=== PATIENT | female | born 1995 | race Two or more races ===

== ENCOUNTER 2018-11-23 00:02 | Inpatient (IN) | payer SELFPAY ==
[~2018-11-23] VITALS: Ht 165.1 cm; Wt 80.3 kg
[2018-11-23] MEDS ORDERED: ACETAMINOPHEN 500 MG TABLET PO PRN (00:15)
[2018-11-23 00:32] LABS: BILIRUBIN,URINE NEGATIVE (NEG); CLARITY,URINE CLEAR; COLOR,URINE YELLOW; NITRITE,URINE NEGATIVE (NEG); PROTEIN,URINE NEGATIVE (NEG-TRACE)
[2018-11-23 00:36] LABS: BACTERIA,URINE FEW /HPF (0-FEW); BARBITURATES NEG (NEG); BENZODIAZEPINES NEG (NEG); CANNABINOIDS NEG (NEG); COCAINE NEG (NEG); METHADONE NEG (NEG); OPIATES NEG (NEG); PHENCYCLIDINE NEG (NEG); RBC,URINE 0 /HPF (0-2); SQUAMOUS EPITHELIAL CELL,UR MANY /LPF
[2018-11-23 00:38] LABS: AMPHETAMINE/METHAMPHETAMINE NEG (NEG)
[2018-11-23 02:15] VITALS: BP 127/78
[2018-11-23] MEDS ORDERED: fentaNYL PF VIAL 100 MCG/2 ML VIAL IV PRN ×2 (02:15)
[2018-11-23] MEDS ORDERED: CITRIC ACID/SODIUM CITRATE 30 ML SOLUTION. PO PRN (02:15)
[2018-11-23] MEDS ORDERED: ONDANSETRON PF 4 MG/2 ML VIAL. IV PRN ×2 (02:15→15:45)
[2018-11-23] MEDS ORDERED: OXYTOCIN 30 UNIT/500 ML PREMIX 500 ML IV PRN ×4 (02:15→15:45)
[2018-11-23] MEDS ORDERED: IV RINGERS,LACTATED 1000ML 1,000 ML IV SCH (02:15)
[2018-11-23] MEDS ORDERED: TERBUTALINE 1 MG/ML VIAL. SQ PRN (02:15)
[2018-11-23] MEDS ORDERED: LIDOCAINE 1% PF 30 ML VIAL. INJ PRN (02:15)
[2018-11-23] MEDS ORDERED: 0.9 % SODIUM CHLORIDE 10 ML DISP.SYRIN. IV PRN ×3 (02:15→15:45)
[2018-11-23] MEDS ORDERED: IBUPROFEN 400 MG TABLET. PO PRN ×2 (02:15→08:45)
[2018-11-23 02:30] LABS: BASO # 0.1 x10^3/uL (0.0-0.2); BASO % 1 % (0-3); EOS # 0.1 x10^3/uL (0.0-0.7); EOS % 1 % (0-3); HEMATOCRIT 38.9 % (36.0-47.0); HEMOGLOBIN 13.2 g/dL (12.0-15.5); LYMPH # 2.4 x10^3/uL (1.0-4.8); LYMPH % 20 % (24-48); MEAN CORPUSCULAR HEMOGLOBIN 29 pg (25-35); MEAN CORPUSCULAR HGB CONC 34 g/dL (31-37); MEAN CORPUSCULAR VOLUME 86 fL (79-100); MONO # 0.9 x10^3/uL (0.0-1.1); MONO % 8 % (0-9); NEUT # 8.3 x10^3uL (1.8-7.7); NEUT % 70 % (31-73); PLATELET COUNT 257 x10^3/uL (140-400); RED BLOOD COUNT 4.51 x10^6/uL (3.50-5.40); WHITE BLOOD COUNT 11.9 x10^3/uL (4.0-11.0)
[2018-11-23] MEDS: IV RINGERS,LACTATED 1000ML 1,000 ML IV SCH ×3 (02:33→20:00)
[2018-11-23] MEDS: BUTORPHANOL 2 MG/ML VIAL. IV PRN ×3 (02:48→09:29)
--- NOTE | 2018-11-23 08:44 | PDOC1 ---
OB - History Hx of Present Care: Good Care Ultrasounds: Normal mid trimester US Obstetrical Complications: None Medical Complications: None Past Family/Social History * Past Medical, Surgical, Family and Obstetric Histories reviewed from chart. Blood Type: O+ Rubella: Immune RPR/VDRL: Negative GBS Status: Negative HBsAG: Negative OB - Chief Complaint & HPI Date of Admission: Date of Admission: Nov 23, 2018 at 00:02 Chief Complaint/History : 3 Para: 2 EDC: Nov 24, 2018 Reason for admission: active labor Admission Nurse Assessment Rev: Yes OB - Admission Exam Physical Exam Vitals: VS - Last 72 Hours, by Label Date Time Temp Pulse Resp B/P (MAP) Pulse Ox O2 Delivery O2 Flow Rate FiO2 11/23/18 05:53 22 Room Air 11/23/18 02:48 18 Room Air 11/23/18 02:15 97.7 102 20 127/78 (94) 97 Room Air 97.7 HEENT: Normal, Nasal Mucosa Normal, Oropharynx Normal, Moist Membranes, Fontanelles Normal Heart: Regular Rate Lungs: Clear, Equal Abdomen: Gravid Extremities: Normal Pulses, No tenderness or swelling Reflexes: Normal Cervical Dilatation: 3cm Effacement: 75% Station: -2 Membranes: Intact Heart Rate: Normal Accelerations: Accelerations Present Short Term Variability: Present Contractions on Admission: 6-10 Minutes Apart Intensity: Moderate Assessment/Plan Assessment/Plan TIUP Labor ACS FRANCES MOROCHO MD Nov 23, 2018 08:44
[2018-11-23] MEDS ORDERED: HYDROCORTISONE 1% TOPICAL OINTMENT 30GM TUBE. TP PRN (08:45)
[2018-11-23] MEDS ORDERED: MAGNESIUM HYDROXIDE 2,400 MG/30 ML ORAL.SUSP. PO PRN (08:45)
[2018-11-23] MEDS ORDERED: diphenhydrAMINE HCL 25 MG CAPSULE PO PRN (08:45)
[2018-11-23] MEDS ORDERED: SIMETHICONE 80 MG TAB.CHEW PO PRN ×2 (08:45→15:45)
[2018-11-23] MEDS ORDERED: ZOLPIDEM 5 MG TABLET. PO PRN ×2 (08:45→15:45)
[2018-11-23] MEDS ORDERED: BENZOCAINE 20% TOPICAL AEROSOL SPRAY 57GM CAN. TP PRN (08:45)
[2018-11-23] MEDS ORDERED: PHENYLEPH/MINERAL OIL/PETROLAT RECTAL OINTMENT 57GM TUBE. RC PRN (08:45)
[2018-11-23] MEDS ORDERED: ACETAMINOPHEN 325 MG TABLET. PO PRN (08:45)
[2018-11-23] MEDS ORDERED: MAG HYDROX/ALUMINUM HYD/SIMETH 30 ML ORAL.SUSP PO PRN ×2 (08:45→15:45)
[2018-11-23] MEDS ORDERED: ROPIVacaine 0.2% PF 10 ML VIAL. ONE (10:30)
[2018-11-23] MEDS ORDERED: ROPIVacaine 0.2% IN 0.9%NACL PF 40 MG/20 ML DISP.SYRIN. ONE (10:31)
[2018-11-23] MEDS ORDERED: L&D EPIDURAL SYRINGE 50 ML ONE (10:31)
[2018-11-23] MEDS ORDERED: L&D EPIDURAL 50 ML SYRINGE. ONE (10:31)
[2018-11-23] MEDS ORDERED: LIDOCAINE 2% PF 5 ML VIAL. ONE ×4 (14:38→14:59)
[2018-11-23] MEDS ORDERED: OXYTOCIN 10 UNIT/ML VIAL. ONE ×5 (14:43→15:35)
[2018-11-23] MEDS ORDERED: ceFAZolin SODIUM 1 GM VIAL ONE ×2 (14:46→14:47)
[2018-11-23] MEDS ORDERED: fentaNYL PF VIAL 100 MCG/2 ML VIAL ONE ×2 (15:00→15:35)
[2018-11-23] MEDS ORDERED: KETAMINE HCL IN NACL, ISO-OSM 50 MG/5 ML SYRINGE ONE ×2 (15:02→15:35)
[2018-11-23] MEDS ORDERED: miSOPROStol 200 MCG TABLET ONE ×8 (15:03→15:35)
[2018-11-23] MEDS ORDERED: PHENYLEPHRINE in 0.9% NACL PF 1 MG/10 ML SYRINGE. IV ONE ×2 (15:07→15:35)
[2018-11-23] MEDS ORDERED: MIDAZOLAM HCL/PF 2 MG/2 ML VIAL. ONE ×2 (15:34→15:35)
--- NOTE | 2018-11-23 15:39 | PDOC ---
BRIEF OPERATIVE NOTE Pre-Op Diagnosis TIUP Labor Post-Op Diagnosis Same FTP Procedure Performed Primary LTC/S Surgeon Fiona Anesthesia Type: Regional Blood Loss 2L Findings Female 9# Complications Hemorrhage FRANCES MOROCHO MD Nov 23, 2018 15:39
[2018-11-23] MEDS ORDERED: diphenhydrAMINE ORAL ELIXIR 12.5 MG/5 ML ML PO PRN (15:45)
[2018-11-23] MEDS ORDERED: oxyCODONE/APAP 5/325 1 TAB TABLET PO PRN (15:45)
[2018-11-23] MEDS ORDERED: MMR per PROTOCOL. MC PRN (15:45)
[2018-11-23] MEDS ORDERED: HYDROmorphone 12mg/30ml PCA 30 ML IV PRN (16:00)
[2018-11-23 16:25] LABS: HEMATOCRIT 31.5 % (36.0-47.0); HEMOGLOBIN 10.5 g/dL (12.0-15.5)
[2018-11-23] MEDS ORDERED: FERROUS SULFATE 325 MG TABLET. PO SCH (17:00)
[2018-11-23 18:45] VITALS: BP 109/72
[2018-11-23] MEDS ORDERED: IBUPROFEN 400 MG TABLET. PO SCH (22:00)
[2018-11-23] MEDS ORDERED: ceFAZolin SODIUM 1 GM in IV DEXTROSE 5% 50 ML IV SCH (22:00)
[2018-11-23 22:13] VITALS: BP 98/66
[2018-11-23] MEDS: ceFAZolin SODIUM IV Push 1 GM VIAL. IVP SCH (22:16)
[2018-11-24 02:00] VITALS: BP 89/52
[2018-11-24] MEDS: IV RINGERS,LACTATED 1000ML 1,000 ML IV SCH ×2 (04:48→12:25)
[2018-11-24 05:10] VITALS: BP 99/59
[2018-11-24] MEDS: IBUPROFEN 400 MG TABLET. PO SCH ×2 (06:15→16:23)
[2018-11-24] MEDS: ceFAZolin SODIUM IV Push 1 GM VIAL. IVP SCH ×2 (06:16→14:43)
[2018-11-24 07:40] VITALS: BP 99/56
[2018-11-24] MEDS: oxyCODONE/APAP 5/325 1 TAB TABLET PO PRN ×4 (08:06→22:31)
[2018-11-24 08:13] LABS: BASO % 0 % (0-3); EOS # 0.1 x10^3/uL (0.0-0.7); EOS % 0 % (0-3); HEMATOCRIT 22.8 % (36.0-47.0); HEMOGLOBIN 7.7 g/dL (12.0-15.5); LYMPH # 2.2 x10^3/uL (1.0-4.8); LYMPH % 17 % (24-48); MEAN CORPUSCULAR HEMOGLOBIN 29 pg (25-35); MEAN CORPUSCULAR HGB CONC 34 g/dL (31-37); MEAN CORPUSCULAR VOLUME 86 fL (79-100); MONO # 1.5 x10^3/uL (0.0-1.1); MONO % 11 % (0-9); NEUT # 9.5 x10^3uL (1.8-7.7); NEUT % 72 % (31-73); PLATELET COUNT 184 x10^3/uL (140-400); RED BLOOD COUNT 2.65 x10^6/uL (3.50-5.40); WHITE BLOOD COUNT 13.3 x10^3/uL (4.0-11.0)
--- NOTE | 2018-11-24 08:25 | PDOC ---
Provider Note Provider Note Stable Hgb 7.7 Dressing CDI FU in AM Vital Sign - Last 24 Hours 11/23/18 11/23/18 11/23/18 11/23/18 16:42 18:45 20:15 22:13 Temp 98.0 98.3 98.0 98.3 Pulse 114 112 Resp 18 18 20 18 B/P (MAP) 109/72 (84) 98/66 (77) Pulse Ox 97 97 96 O2 Delivery Room Air Room Air ETCO2=33 ETCO2=33 11/24/18 11/24/18 11/24/18 11/24/18 02:00 05:10 05:12 08:06 Temp 98.3 98.6 98.3 98.6 Pulse 115 117 Resp 24 18 20 20 B/P (MAP) 89/52 (64) 99/59 (72) Pulse Ox 95 96 98 O2 Delivery ETCO2=35 Room Air ETCO2=34 Room Air Intake and Output 11/23/18 11/23/18 11/24/18 15:00 23:00 07:00 Intake Total 2420 ml Output Total 450 ml Balance 1970 ml CBC - BMP 11/23/18 16:20 11/24/18 07:52 FRANCES MOROCHO MD Nov 24, 2018 08:25
[2018-11-24] MEDS: FERROUS SULFATE 325 MG TABLET. PO SCH ×2 (12:24→16:23)
[2018-11-24 12:25] VITALS: BP 86/46
[2018-11-24 16:20] VITALS: BP 94/60
[2018-11-24 21:30] VITALS: BP 90/54
[2018-11-24] MEDS: DOCUSATE SODIUM 100 MG CAPSULE. PO PRN (21:53)
[2018-11-24] MEDS: MAGNESIUM HYDROXIDE 2,400 MG/30 ML ORAL.SUSP. PO PRN (21:53)
[2018-11-25] MEDS: IBUPROFEN 400 MG TABLET. PO SCH (04:56)
[2018-11-25] MEDS: oxyCODONE/APAP 5/325 1 TAB TABLET PO PRN (04:57)
[2018-11-25 05:26] LABS: HEMATOCRIT 21.4 % (36.0-47.0); HEMOGLOBIN 7.3 g/dL (12.0-15.5); RED BLOOD COUNT 2.47 x10^6/uL (3.50-5.40); RED CELL DISTRIBUTION WIDTH 15.9 % (11.5-14.5); WHITE BLOOD COUNT 12.6 x10^3/uL (4.0-11.0)
[2018-11-25 05:31] VITALS: BP 105/57
[2018-11-25] MEDS: FERROUS SULFATE 325 MG TABLET. PO SCH (09:59)
[2018-11-25] MEDS: DOCUSATE SODIUM 100 MG CAPSULE. PO PRN (09:59)
[2018-11-25] MEDS: MAGNESIUM HYDROXIDE 2,400 MG/30 ML ORAL.SUSP. PO PRN (09:59)
[2018-11-25 11:20] VITALS: BP 100/59
[2018-11-25 15:15] VITALS: BP_SYST 104
--- NOTE | 2018-11-25 18:30 | PDOC ---
OB Progress Note Date of Service 11/25/18 Time of Evaluation 1830 Notes Pt. feeling well. No complaints. Lab Laboratory Tests Test 11/24/18 07:52 11/25/18 04:30 White Blood Count 13.3 x10^3/uL (4.0-11.0) 12.6 x10^3/uL (4.0-11.0) Red Blood Count 2.65 x10^6/uL (3.50-5.40) 2.47 x10^6/uL (3.50-5.40) Hemoglobin 7.7 g/dL (12.0-15.5) 7.3 g/dL (12.0-15.5) Hematocrit 22.8 % (36.0-47.0) 21.4 % (36.0-47.0) Mean Corpuscular Volume 86 fL (79-100) 87 fL (79-100) Mean Corpuscular Hemoglobin 29 pg (25-35) 29 pg (25-35) Mean Corpuscular Hemoglobin Concent 34 g/dL (31-37) 34 g/dL (31-37) Red Cell Distribution Width 16.0 % (11.5-14.5) 15.9 % (11.5-14.5) Platelet Count 184 x10^3/uL (140-400) 201 x10^3/uL (140-400) Neutrophils (%) (Auto) 72 % (31-73) Lymphocytes (%) (Auto) 17 % (24-48) Monocytes (%) (Auto) 11 % (0-9) Eosinophils (%) (Auto) 0 % (0-3) Basophils (%) (Auto) 0 % (0-3) Neutrophils # (Auto) 9.5 x10^3uL (1.8-7.7) Lymphocytes # (Auto) 2.2 x10^3/uL (1.0-4.8) Monocytes # (Auto) 1.5 x10^3/uL (0.0-1.1) Eosinophils # (Auto) 0.1 x10^3/uL (0.0-0.7) Basophils # (Auto) 0.0 x10^3/uL (0.0-0.2) Laboratory Tests Test 11/25/18 04:30 White Blood Count 12.6 x10^3/uL (4.0-11.0) Red Blood Count 2.47 x10^6/uL (3.50-5.40) Hemoglobin 7.3 g/dL (12.0-15.5) Hematocrit 21.4 % (36.0-47.0) Mean Corpuscular Volume 87 fL (79-100) Mean Corpuscular Hemoglobin 29 pg (25-35) Mean Corpuscular Hemoglobin Concent 34 g/dL (31-37) Red Cell Distribution Width 15.9 % (11.5-14.5) Platelet Count 201 x10^3/uL (140-400) Medications Current Medications Ringer's Solution 1,000 ml @ 125 mls/hr Q8H IV Last administered on 11/24/18at 12:25; Start 11/23/18 at 00:15 Acetaminophen (Tylenol) 1,000 mg PRN Q6HRS PRN PO MILD PAIN 1-3; Start 11/23/18 at 00:15 Sodium Chloride (Normal Saline Flush) 3 ml QSHIFT PRN IV AFTER MEDS AND BLOOD DRAWS; Start 11/23/18 at 02:15; Stop 11/23/18 at 15:44; Status DC Ringer's Solution 1,000 ml @ 125 mls/hr Q8H IV Last administered on 11/23/18at 11:00; Start 11/23/18 at 02:15; Stop 11/23/18 at 15:44; Status DC Butorphanol Tartrate (Stadol) 2 mg PRN Q1HR PRN IV Severe labor pain Last administered on 11/23/18at 09:29; Start 11/23/18 at 02:15; Stop 11/23/18 at 15:44; Status DC Fentanyl Citrate (Fentanyl 2ml Vial) 100 mcg PRN Q30MIN PRN IV Severe pain; Start 11/23/18 at 02:15; Stop 11/23/18 at 15:44; Status DC Fentanyl Citrate (Fentanyl 2ml Vial) 50 mcg PRN Q10MIN PRN IV Labor pain; Start 11/23/18 at 02:15; Stop 11/23/18 at 15:44; Status DC Ondansetron HCl (Zofran) 4 mg PRN Q4HRS PRN IV NAUSEA/VOMITING; Start 11/23/18 at 02:15; Stop 11/23/18 at 15:44; Status DC Citric Acid/ Sodium Citrate (Bicitra) 30 ml 1X PRN PRN PO DYSPEPSIA; Start 11/23/18 at 02:15; Stop 11/23/18 at 15:44; Status DC Terbutaline Sulfate (Brethine) 0.25 mg 1X PRN PRN SQ SEE COMMENTS; Start 11/23/18 at 02:15; Stop 11/23/18 at 15:44; Status DC Lidocaine HCl (Xylocaine 1% Pf 30ml Vial) 30 ml 1X PRN PRN INJ SEE COMMENTS; Start 11/23/18 at 02:15; Stop 11/23/18 at 15:44; Status DC Oxytocin/Sodium Chloride 500 ml @ 0 mls/hr CONT PRN IV SEE I/O RECORD; Start 11/23/18 at 02:15; Stop 11/23/18 at 15:44; Status DC Oxytocin/Sodium Chloride 500 ml @ 0 mls/hr CONT PRN PRN IV Post delivery bleeding Last administered on 11/23/18at 02:48; Start 11/23/18 at 02:15 Ibuprofen (Motrin) 800 mg PRN Q6HRS PRN PO PAIN; Start 11/23/18 at 02:15; Stop 11/23/18 at 15:38; Status DC Sodium Chloride (Normal Saline Flush) 10 ml QSHIFT PRN IV AFTER MEDS AND BLOOD DRAWS; Start 11/23/18 at 08:45; Stop 11/23/18 at 15:44; Status DC Oxytocin/Sodium Chloride 500 ml @ 62.5 mls/hr CONT PRN IV SEE I/O RECORD; Start 11/23/18 at 08:45; Stop 11/23/18 at 16:44; Status DC Acetaminophen (Tylenol) 650 mg PRN Q6HRS PRN PO MILD PAIN / TEMP; Start 11/23/18 at 08:45; Status UNV Ibuprofen (Motrin) 800 mg Q8HRS PO Last administered on 11/25/18at 04:56; Start 11/23/18 at 14:00 Ibuprofen (Motrin) 800 mg PRN Q8HRS PRN PO INFLAMMATION/PAIN PREVENTION; Start 11/23/18 at 08:45; Status UNV Magnesium Hydroxide (Milk Of Magnesia) 2,400 mg PRN DAILY PRN PO CONSTIPATION; Start 11/23/18 at 08:45; Stop 11/23/18 at 15:44; Status DC Al Hydroxide/Mg Hydroxide (Mylanta Plus Xs) 30 ml PRN Q4HRS PRN PO HEARTBURN / GAS; Start 11/23/18 at 08:45 Simethicone (Gas-X) 80 mg PRN AFTMEALHC PRN PO GAS / BLOATING Last administered on 11/24/18at 21:58; Start 11/23/18 at 08:45 Diphenhydramine HCl (Benadryl) 25 mg PRN Q6HRS PRN PO ITCHING; Start 11/23/18 at 08:45 Benzocaine (Americaine) 1 spray PRN QID PRN TP TOPICAL PAIN; Start 11/23/18 at 08:45 Phenyleph/Shark Oil/Min Oil/Petrol (Preparation H) 1 zaida PRN QID PRN RC RECTAL PAIN; Start 11/23/18 at 08:45 Hydrocortisone (Cortaid) 1 zaida PRN QID PRN TP PERINEAL PAIN; Start 11/23/18 at 08:45 Ferrous Sulfate (Feosol) 325 mg BIDWMEALS PO Last administered on 11/25/18at 09:59; Start 11/23/18 at 17:00 Zolpidem Tartrate (Ambien) 5 mg PRN QHS PRN PO INSOMNIA, MAY REPEAT X1; Start 11/23/18 at 08:45; Stop 11/23/18 at 15:44; Status DC Info (Do NOT chart on this placeholder) 1 ea 1X PRN PRN MC SEE COMMENTS; Start 11/23/18 at 08:45; Stop 11/23/18 at 15:44; Status DC Sodium Chloride (Normal Saline Flush) 3 ml QSHIFT PRN IV AFTER MEDS AND BLOOD DRAWS; Start 11/23/18 at 15:45 Oxytocin/Sodium Chloride 500 ml @ 125 mls/hr CONT PRN IV EXCESSIVE POST- BLEEDING; Start 11/23/18 at 15:45; Stop 11/23/18 at 23:44; Status DC Ibuprofen (Motrin) 800 mg Q8HRS PO ; Start 11/23/18 at 22:00; Status UNV Ondansetron HCl (Zofran) 4 mg PRN Q6HRS PRN IV NAUSEA/VOMITING; Start 11/23/18 at 15:45 Docusate Sodium (Colace) 100 mg PRN BID PRN PO HARD STOOLS Last administered on 11/25/18at 09:59; Start 11/23/18 at 15:45 Magnesium Hydroxide (Milk Of Magnesia) 2,400 mg PRN DAILY PRN PO CONSTIPATION Last administered on 11/25/18at 09:59; Start 11/23/18 at 15:45 Al Hydroxide/Mg Hydroxide (Mylanta Plus Xs) 30 ml PRN Q4HRS PRN PO HEARTBURN / GAS; Start 11/23/18 at 15:45; Status UNV Simethicone (Gas-X) 80 mg PRN AFTMEALHC PRN PO GAS / BLOATING; Start 11/23/18 at 15:45; Status UNV Diphenhydramine HCl (Benadryl Oral Elixir) 12.5 mg PRN Q6HRS PRN PO ITCHING; Start 11/23/18 at 15:45 Ferrous Sulfate (Feosol) 325 mg BIDWMEALS PO ; Start 11/23/18 at 17:00; Status UNV Zolpidem Tartrate (Ambien) 5 mg PRN QHS PRN PO INSOMNIA, MAY REPEAT X1; Start 11/23/18 at 15:45 Info (Do NOT chart on this placeholder) 1 ea PRN 1X PRN MC SEE COMMENTS; Start 11/23/18 at 15:45; Stop 11/24/18 at 18:07; Status DC Info (Do NOT chart on this placeholder) 1 ea PRN 1X PRN MC SEE COMMENTS; Start 11/23/18 at 15:45; Stop 11/24/18 at 18:07; Status DC Oxycodone/ Acetaminophen (Percocet 5/325) 1 tab PRN Q4HRS PRN PO MODERATE PAIN Last administered on 11/25/18at 04:57; Start 11/23/18 at 15:45 Oxycodone/ Acetaminophen (Percocet 5/325) 2 tab PRN Q4HRS PRN PO SEVERE PAIN Last administered on 11/25/18at 15:05; Start 11/23/18 at 15:45 Cefazolin Sodium 1 gm/Dextrose 50 ml @ 100 mls/hr Q8HRS IV ; Start 11/23/18 at 22:00; Status UNV Fentanyl Citrate (Fentanyl 2ml Vial) 100 mcg STK-MED ONCE .ROUTE ; Start 11/23/18 at 15:35; Stop 11/23/18 at 15:41; Status DC Ketamine HCl (Ketamine) 50 mg STK-MED ONCE .ROUTE ; Start 11/23/18 at 15:35; Stop 11/23/18 at 15:41; Status DC Misoprostol (Cytotec 200mcg Tab) 200 mcg STK-MED ONCE .ROUTE ; Start 11/23/18 at 15:35; Stop 11/23/18 at 15:41; Status DC Phenylephrine HCl (PHENYLEPHRINE in 0.9% NACL PF) 1 mg STK-MED ONCE IV ; Start 11/23/18 at 15:35; Stop 11/23/18 at 15:41; Status DC Oxytocin (Pitocin) 20 unit STK-MED ONCE .ROUTE ; Start 11/23/18 at 15:35; Stop 11/23/18 at 15:41; Status DC Midazolam HCl (Versed) 2 mg STK-MED ONCE .ROUTE ; Start 11/23/18 at 15:35; Stop 11/23/18 at 15:41; Status DC Misoprostol (Cytotec 200mcg Tab) 200 mcg STK-MED ONCE .ROUTE ; Start 11/23/18 at 15:35; Stop 11/23/18 at 15:41; Status DC Misoprostol (Cytotec 200mcg Tab) 200 mcg STK-MED ONCE .ROUTE ; Start 11/23/18 at 15:35; Stop 11/23/18 at 15:41; Status DC Misoprostol (Cytotec 200mcg Tab) 200 mcg STK-MED ONCE .ROUTE ; Start 11/23/18 at 15:35; Stop 11/23/18 at 15:41; Status DC Hydromorphone HCl 30 ml @ 0 mls/hr CONT PRN PRN IV PER PROTOCOL Last administered on 11/23/18at 16:42; Start 11/23/18 at 16:00; Stop 11/24/18 at 18:07; Status DC Cefazolin Sodium (Ancef) 1 gm Q8H IVP Last administered on 11/24/18at 14:43; Start 11/23/18 at 23:00; Stop 11/24/18 at 15:01; Status DC Ropivacaine (Naropin 0.2%) 10 ml STK-MED ONCE .ROUTE ; Start 11/23/18 at 10:30; Stop 11/23/18 at 17:59; Status DC Ropivacaine/ Fentanyl/NS 50 ml @ As Directed STK-MED ONCE .ROUTE ; Start 11/23/18 at 10:31; Stop 11/23/18 at 17:59; Status DC Lidocaine HCl (Lidocaine Pf 2% Vial) 5 ml STK-MED ONCE .ROUTE ; Start 11/23/18 at 14:38; Stop 11/23/18 at 18:03; Status DC Lidocaine HCl (Lidocaine Pf 2% Vial) 5 ml STK-MED ONCE .ROUTE ; Start 11/23/18 at 14:38; Stop 11/23/18 at 18:03; Status DC Oxytocin (Pitocin) 10 unit STK-MED ONCE .ROUTE ; Start 11/23/18 at 14:43; Stop 11/23/18 at 18:03; Status DC Oxytocin (Pitocin) 10 unit STK-MED ONCE .ROUTE ; Start 11/23/18 at 14:43; Stop 11/23/18 at 18:03; Status DC Oxytocin (Pitocin) 10 unit STK-MED ONCE .ROUTE ; Start 11/23/18 at 14:43; Stop 11/23/18 at 18:03; Status DC Cefazolin Sodium (Ancef) 1 gm STK-MED ONCE .ROUTE ; Start 11/23/18 at 14:46; Stop 11/23/18 at 18:03; Status DC Cefazolin Sodium (Ancef) 1 gm STK-MED ONCE .ROUTE ; Start 11/23/18 at 14:47; Stop 11/23/18 at 18:03; Status DC Lidocaine HCl (Lidocaine Pf 2% Vial) 5 ml STK-MED ONCE .ROUTE ; Start 11/23/18 at 14:52; Stop 11/23/18 at 18:03; Status DC Lidocaine HCl (Lidocaine Pf 2% Vial) 5 ml STK-MED ONCE .ROUTE ; Start 11/23/18 at 14:59; Stop 11/23/18 at 18:03; Status DC Fentanyl Citrate (Fentanyl 2ml Vial) 100 mcg STK-MED ONCE .ROUTE ; Start 11/23/18 at 15:00; Stop 11/23/18 at 18:03; Status DC Ketamine HCl (Ketamine) 50 mg STK-MED ONCE .ROUTE ; Start 11/23/18 at 15:02; Stop 11/23/18 at 18:03; Status DC Misoprostol (Cytotec 200mcg Tab) 200 mcg STK-MED ONCE .ROUTE ; Start 11/23/18 at 15:03; Stop 11/23/18 at 18:03; Status DC Misoprostol (Cytotec 200mcg Tab) 200 mcg STK-MED ONCE .ROUTE ; Start 11/23/18 at 15:03; Stop 11/23/18 at 18:03; Status DC Misoprostol (Cytotec 200mcg Tab) 200 mcg STK-MED ONCE .ROUTE ; Start 11/23/18 at 15:03; Stop 11/23/18 at 18:03; Status DC Misoprostol (Cytotec 200mcg Tab) 200 mcg STK-MED ONCE .ROUTE ; Start 11/23/18 at 15:03; Stop 11/23/18 at 18:03; Status DC Phenylephrine HCl (PHENYLEPHRINE in 0.9% NACL PF) 1 mg STK-MED ONCE IV ; Start 11/23/18 at 15:07; Stop 11/23/18 at 18:03; Status DC Oxytocin (Pitocin) 10 unit STK-MED ONCE .ROUTE ; Start 11/23/18 at 15:21; Stop 11/23/18 at 18:04; Status DC Midazolam HCl (Versed) 2 mg STK-MED ONCE .ROUTE ; Start 11/23/18 at 15:34; Stop 11/23/18 at 18:04; Status DC Ropivacaine/ Fentanyl/NS (Gnefbtqr-Rpdit-DW 3 Mcg-0.1%) 50 ml STK-MED ONCE .ROUTE ; Start 11/23/18 at 10:31; Stop 11/24/18 at 08:31; Status DC Ropivacaine/ Sodium Chloride (ROPIVacaine 0.2% - 0.9%NACL PF) 40 mg STK-MED ONCE .ROUTE ; Start 11/23/18 at 10:31; Stop 11/24/18 at 08:31; Status DC Exam Abd: soft, non tender, fundus firm Prevena in place. Assessment POD#2 s/p c/s Plan of Care: Continue current Tx, Mgmt HERMINIO JULES Jr, MD Nov 25, 2018 18:30
[2018-11-25 23:46] VITALS: BP 111/65
[2018-11-26] MEDS: IBUPROFEN 400 MG TABLET. PO SCH (05:46)
[2018-11-26 06:54] VITALS: BP 100/71
[2018-11-26] MEDS: FERROUS SULFATE 325 MG TABLET. PO SCH (08:51)
[2018-11-26] MEDS: DOCUSATE SODIUM 100 MG CAPSULE. PO PRN (08:51)
[2018-11-26 10:32] VITALS: BP 108/74
[2018-11-26 15:45] VITALS: BP 112/76
--- NOTE | 2018-11-26 15:45 | NUR ---
Discharge instructrions reviewed with patient and kimber May [place] lay up operator Franc [id number]. Verbalizes understanding. Pt in stable condition. VSS. Up and about.Tolerating food and fluids. Voiding and stooling. Incision clean and dry, well-approximated. Pain controlled with po meds. Bonding appropriately with infant.
--- NOTE | 2018-11-26 16:30 | NUR ---
Discharged per wheelchair with infant. Accompanied by and daughters. Escorted to car by nursing personnel.
--- NOTE | 2018-11-27 20:27 | OP ---
DATE OF SURGERY: 11/23/2018 PREOPERATIVE DIAGNOSIS: Term intrauterine , failure to progress. POSTOPERATIVE DIAGNOSIS: Term intrauterine , failure to progress. PROCEDURE: Primary low transverse . SURGEON: Akshat Jaimes M.D. COLLECTIONS TECHNICIAN: None. ANESTHESIA: Regional. ESTIMATED BLOOD LOSS: 2 liters. FINDINGS: Female , Apgars 8, 7 and 9, weight is 9 pounds. COMPLICATIONS: Hemorrhage. CONDITION: Stable. DESCRIPTION OF PROCEDURE: Risks, benefits, indications and alternatives discussed in detail with the patient. The patient was brought to OR theater, placed in supine position with left lateral uterine displacement. After adequate regional anesthesia, the patient was prepped and draped in usual sterile manner. A low transverse Pfannenstiel incision was made sharply with a Bovie cautery, carried down through subcutaneous tissue with Bovie cautery. Rectus fascia was nicked in midline and extended laterally in each direction with Bovie cautery. Upper edge of rectus fascia was grasped x 2 with Nishant clamps, elevated above the rectus muscle, both bluntly and sharply with Bovie cautery. The same procedure was carried out on lower edge of rectus fascia. Rectus muscle was split in midline and extended superiorly and inferiorly with Bovie cautery. Parietal peritoneum was entered bluntly with gloved hand. With gentle stretch on rectus muscle, room was made for delivery of the . Christophe retractor was placed in the pelvic cavity. Sponges were placed bilaterally in the gutters. A low transverse hysterotomy incision was made sharply with a scalpel with care not to injure any underlying structures. With fundal pressure from the treasury assistant, it was difficult to deliver the baby, vacuum device was used placed in the baby's head and with fundal pressure, was delivered on anterior abdominal wall without any difficulties. The cried spontaneously and moved all extremities. Cord was doubly clamped, transected cord between 2 clamps. The was handed to nursing care in attendance. Cord blood samples were taken. Placenta delivered spontaneously intact, 3-vessel cord noted. A left lower uterine segment vertical extension of the uterine incision secondary to the size of the infant and the bleeding was controlled by clamping the vessel between the 2 fingers and reapproximating the lower cervical laceration. The remaining of the repair was done in the usual fashion. The hysterotomy incision was reapproximated with 0 Monocryl in a running locking manner, imbricated with 0 Monocryl in vertical mattress stitch fashion. Bladder flap was reapproximated with 3-0 Vicryl in a running manner. Sponges were removed from the gutters. No debris was noted. The Christophe retractor was removed. Lower uterine segment was inspected and noted to be free of any bleeding and hemostatic. Parietal peritoneum was reapproximated with 3-0 Vicryl in a running manner, this reapproximated rectus muscle in the midline. Areas of bleeding were also controlled with Bovie cautery. Emily fascia was reapproximated with 2-0 plain. The skin was reapproximated with Insorb kaushal. Sponge and needle counts were correct x 2. AKSHAT JAIMES MD DR: PJ/guadalupe JOB#: [id number] / [id number]
== END 2018-11-26 16:30 | disposition home or self-care (01) | DRG 788 ==
LOC: 3 SO LND 00:02 → OBSVTOIN 00:02 → 3 NORTH 18:20
PROVIDERS: ADMIT Specialist; ATTEND Specialist
PROC: 10D00Z1 Extraction of Products of Conception, Low, Open Approach (ICD-10-PCS; principal; 2018-11-23)
DX: O62.2 Other uterine inertia (principal); Z37.0 Single live birth; Z3A.40 40 weeks gestation of pregnancy; O67.9 Intrapartum hemorrhage, unspecified
CPT/HCPCS: 36415; 80307; 81001; 85014; 85018; 85025; 85027; 86592; 86850; 86900; 86901; 87086; J0690; J1170; J2001; J2250; J2370; J2590; J2795; J3010; J7120

== ENCOUNTER → 2020-10-05 | Outpatient (CLI) | payer SELFPAY | LOC: LAB 09:36 | PROVIDERS: ATTEND Obstetrics & Gynecology | DX: Z01.812 Encounter for preprocedural laboratory examination (principal); Z20.822 Contact with and (suspected) exposure to COVID-19 | CPT/HCPCS: U0003; U0005 ==

== ENCOUNTER 2020-10-08 05:59 | Inpatient (IN) | payer SELFPAY ==
[~2020-10-08] VITALS: Ht 162.6 cm; Wt 87.5 kg
[2020-10-08] MEDS ORDERED: IV RINGERS,LACTATED 1000ML 1,000 ML IV SCH (06:15)
[2020-10-08] MEDS ORDERED: ceFAZolin 2GM PREMIX 2 GM/50 ML BAG IV ONE (07:00)
[2020-10-08 07:03] LABS: HEMATOCRIT 38.8 % (36.0-47.0); HEMOGLOBIN 13.2 g/dL (12.0-15.5); RED BLOOD COUNT 4.4 x10^6/uL (3.50-5.40); RED CELL DISTRIBUTION WIDTH 15.1 % (11.5-14.5); WHITE BLOOD COUNT 9.9 x10^3/uL (4.0-11.0)
[2020-10-08 07:21] VITALS: BP 125/78
--- NOTE | 2020-10-08 07:27 | PDOC1 ---
[facility] H&P Date of Admission: Date of Admission: Oct 08, 2020 at 05:59 History of Present Illness: EDC: 10/13/20 LMP: 01/06/21 25y @ 39.2 by L=22 presents for scheduled C/S. The consent that the pt signed earlier in the had to be redone. The new consent has not matured. The pt initially desired a repeat C/S so that the BTL could be done at the same time. With the understanding that the BTL can not be done she still de sires the repeat C/S. PMH: Denies PSH: C/S x 1 Meds: PNV, ASA All: NKDA OBHx: 2 x TSVD, 1 x TC/S SH: no tob, no EtOH FH: noncontributory Medications: Meds: Current Medications Medications (Trade) Dose Ordered Sig/Carl Route PRN Reason Start Time Stop Time Status Last Admin Dose Admin Ringer's Solution 1,000 ml @ 1,000 mls/hr Q1H IV 10/08/20 06:15 10/08/20 07:14 DC 10/08/20 06:28 Allergies: Coded Allergies: No Known Drug Allergies (Unverified , 11/23/18) Physical Exam: Vital Signs: Vital Signs Date Time Temp Pulse Resp B/P (MAP) Pulse Ox O2 Delivery O2 Flow Rate FiO2 10/08/20 07:21 99.2 104 18 125/78 (94) 98 Room Air 99.2 PE: GENERAL: No apparent distress. Alert and oriented. HEENT: Head normocephalic, atraumatic. NECK: Supple LUNGS: Clear to auscultation. HEART: RRR, S1, S2 present, pulses intact ABDOMEN: Soft, positive bowel sounds. EXTREMITIES: No cyanosis or edema. NEUROLOGIC: Normal speech, normal tone PSYCHIATRIC: Normal affect, normal mood. SKIN: No ulceration. FHT: 140s +acels/no decels/mLTV [place]: 10-15 min Labs: Laboratory Tests Test 10/08/20 06:30 White Blood Count 9.9 x10^3/uL (4.0-11.0) Red Blood Count 4.40 x10^6/uL (3.50-5.40) Hemoglobin 13.2 g/dL (12.0-15.5) Hematocrit 38.8 % (36.0-47.0) Mean Corpuscular Volume 88 fL (79-100) Mean Corpuscular Hemoglobin 30 pg (25-35) Mean Corpuscular Hemoglobin Concent 34 g/dL (31-37) Red Cell Distribution Width 15.1 % (11.5-14.5) H Platelet Count 192 x10^3/uL (140-400) Laboratory Tests 10/08/20 06:30 Laboratory Tests 10/08/20 06:30 Assessment & Plan: A/P 25y @ 39.2 by L=22 1.) Prev C/S x 1 - desires repeat 2.) DPS - consent signed 09/20/20, may not mature by the time of delivery 3.) EFW 84%ile - base on LMP, but LMP was already 13 day difference from 22wk dating u/s 4.) GDM - Never performed 3hr GTT, based on the value >200. Did not bring FSBS logs, sounds like her fastings have been elevated 5.) TDAP given 08/20/20 6.) Flu 05/08/20 7.) Fetus cat I FHT 8.) GBS neg ISRAEL NGUYEN MD Oct 08, 2020 07:27
[2020-10-08] MEDS ORDERED: OXYTOCIN 10 UNIT/ML VIAL. ONE (07:39)
[2020-10-08] MEDS ORDERED: FAMOTIDINE 20 MG/2 ML VIAL ONE (07:39)
[2020-10-08] MEDS ORDERED: MORPHINE PF 10 MG/10 ML AMPUL. ONE (07:40)
[2020-10-08] MEDS ORDERED: fentaNYL PF VIAL 100 MCG/2 ML VIAL ONE (07:40)
[2020-10-08] MEDS ORDERED: ePHEDrine PF IN SALINE 50 MG/10 ML SYRINGE. IV ONE (07:45)
[2020-10-08] MEDS ORDERED: METOCLOPRAMIDE HCL 10 MG/2 ML VIAL. ONE (09:55)
[2020-10-08] MEDS ORDERED: PHENYLEPHRINE in 0.9% NACL PF 1 MG/10 ML SYRINGE. IV ONE (09:55)
[2020-10-08] MEDS ORDERED: 0.9 % SODIUM CHLORIDE 10 ML DISP.SYRIN. IV PRN (10:15)
[2020-10-08] MEDS ORDERED: diphenhydrAMINE ORAL ELIXIR 12.5 MG/5 ML ML PO PRN (10:15)
[2020-10-08] MEDS ORDERED: oxyCODONE/APAP 5/325 1 TAB TABLET PO PRN ×2 (10:15)
[2020-10-08] MEDS ORDERED: KETOROLAC 30 MG/ML VIAL. IVP PRN (10:15)
[2020-10-08] MEDS ORDERED: DOCUSATE SODIUM 100 MG CAPSULE. PO PRN (10:15)
[2020-10-08] MEDS ORDERED: ACETAMINOPHEN 325 MG TABLET. PO PRN (10:15)
[2020-10-08] MEDS ORDERED: MMR per PROTOCOL. MC PRN (10:15)
[2020-10-08] MEDS ORDERED: BENZOCAINE 20% TOPICAL AEROSOL SPRAY 57GM CAN. TP PRN (10:15)
[2020-10-08] MEDS ORDERED: OXYTOCIN 30 UNIT/500 ML PREMIX 500 ML IV PRN (10:15)
[2020-10-08] MEDS ORDERED: TDaP (Adacel) per PROTOCOL. MC PRN (10:15)
--- NOTE | 2020-10-08 11:05 | PDOC4 ---
OPERATIVE NOTE: PreOp Dx: 1.) IUP @ 39.2 by L=22, 2.) Prev C/S x 1 - desires repeat, 3.) DPS - consent signed 09/20/20, not matured, 4.) EFW 84%ile, 5.) GDM, 6.) GBS neg PostOp Dx: same Procedure: RLTCS Surgeon: Parvez Nguyen Anesthesia: Spinal EBL: 800 cc Fluids: 1400 cc UOP: 3750 cc Complications: None Findings: viable male delivered at 0854. Wt 9 lb 14 oz. APGARS 8/8. Peritoneal and omental adhesions on the left anterior uterus. Thin serosal adhesions over the left tube and round ligament. Path: Cord blood ISRAEL NGUYEN MD Oct 08, 2020 11:05
--- NOTE | 2020-10-08 11:28 | OP ---
DATE OF SURGERY: 10/08/2020 PREOPERATIVE DIAGNOSES: 1. Intrauterine at 39 weeks and 2 days by LMP equal to 22-week ultrasound. 2. Previous section x 1, desires repeat. 3. Desires permanent sterilization. Consent signed on 09/20/2020, so not matured. 4. Estimated weight in the 84th percentile. 5. Gestational diabetes highly likely based on a glucose tolerance test above 200, although the patient never performed fingersticks. 6. GBS negative. POSTOPERATIVE DIAGNOSES: 1. Intrauterine at 39 weeks and 2 days by LMP equal to 22-week ultrasound. 2. Previous section x 1, desires repeat. 3. Desires permanent sterilization. Consent signed on 09/20/2020, so not matured. 4. Estimated weight in the 84th percentile. 5. Gestational diabetes highly likely based on a glucose tolerance test above 200, although the patient never performed fingersticks. 6. GBS negative. PROCEDURE: Repeat low transverse . SURGEON: Raffy Nguyen MD ANESTHESIA: Spinal. ESTIMATED BLOOD LOSS: 800 mL. FLUIDS: 1400 mL. URINE OUTPUT: 375 mL. COMPLICATIONS: None. FINDINGS: Viable male delivered at 0854, weighing 9 pounds 14 ounces with Apgars of 8 and 8. Peritoneal and omental adhesions on the left anterior uterus, also some thin serosal adhesions to the left tube and round ligament. PATHOLOGY: Cord blood. DESCRIPTION OF PROCEDURE: The patient was taken to the operating room where spinal anesthesia was placed without difficulty. The patient was prepped and draped in normal sterile fashion with a left lateral tilt. A Pfannenstiel skin incision was made through a previous incision and carried down to the underlying layer of fascia. The fascia was then nicked in the midline. The fascial incision was then extended laterally with Vázquez scissors. Superior aspect of the fascial incision was then grasped with Nishant clamps, elevated and the underlying rectus muscle was dissected off with the scalpel. Attention was then turned to the inferior aspect of the fascial incision, which again was grasped with Nishant clamps, elevated and the rectus muscle was dissected off with Vázquez scissors. The midline of the rectus muscle was identified and . The peritoneum was then grasped with 2 hemostats and tented up and entered sharply with Metzenbaum scissors. Digital examination of the peritoneal cavity revealed some adhesions on the left lateral aspect. This was below the peritoneal incision, so the peritoneum was then extended superiorly and inferiorly with good visualization of the bladder with traction and countertraction. The peritoneal adhesions remained present after the extension of the peritoneum, but were able to be taken down bluntly to allow for the Christophe ring to be placed to better visualize the lower uterine segment. Metzenbaum scissors were then used to create a bladder flap. Lower uterine segment was then incised in transverse fashion with the scalpel. The uterine incision was then extended with traction and countertraction. The head was then flexed and brought to the hysterotomy. The rest of infant was delivered atraumatically. The nose and mouth were bulb suctioned. The cord was double clamped and cut. Infant was handed over to the awaiting rougher machine operator. Placenta was then removed manually and the uterus was cleared of all clots and debris. Uterine incision was then repaired with #1 chromic in a running locked fashion. Second layer of the same suture was used to imbricate. There was an area at the left lateral edge that appeared to be bleeding. A [id number] stitch with 2-0 chromic was then placed to achieve hemostasis. The suture was then used to place 2 locked stitches to achieve hemostasis. Once hemostasis was achieved, the uterus was then exteriorized to see if there is any additional adhesions. It was noted that the omentum was attached to the left side of the anterior uterus. This was then taken down with the Bovie to restore normal anatomy. There were also some adhesions of the peritoneum to the left tube and round ligament. This was then taken down with the Bovie. The uterus was then returned to the abdomen. The gutters were copiously irrigated and cleared of clots and debris. It was noted during the irrigation that the left round ligament was bleeding. A 3-0 chromic was then placed with a [id number]-tc-brzbf stitch to achieve hemostasis. The irrigation was continued and good hemostasis was noted. At that point, the Christophe ring was then removed. The peritoneum was then closed with 2-0 Vicryl in a running fashion. The muscle was reapproximated with 2-0 Vicryl in a running fashion. The fascia was then closed with 0 Vicryl in a running fashion. The skin was closed with 3-0 Monocryl in a subcuticular manner. Sponge, laps, and needles were correct x 3. Two grams of Ancef were given prior to procedure. The patient was taken to the recovery room in stable condition. RAFFY NGUYEN MD DR: PINA/guadalupe JOB#: [id number] / [id number] MARJAN
[2020-10-08 12:30] VITALS: BP 110/60
[2020-10-08] MEDS: IV RINGERS,LACTATED 1000ML 1,000 ML IV SCH ×2 (12:30→17:43)
[2020-10-08 14:02] VITALS: BP 109/60
[2020-10-08] MEDS ORDERED: FERROUS SULFATE 325 MG TABLET. PO SCH (17:00)
[2020-10-08 17:45] VITALS: BP 113/66
--- NOTE | 2020-10-08 18:48 | NUR ---
The patient, GERDA MANUEL, 25 y/o, F admitted by ISRAEL NGUYEN MD, was given written information regarding hospital policies, unit procedures and contact persons. Valuables were checked and left with pt. Pt. educated about POC. Pt. verbalized understanding and is agreeable to POC. All questions answered at this time. 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
[2020-10-08 21:45] VITALS: BP 104/57
[2020-10-09 01:44] VITALS: BP 104/52
[2020-10-09 06:22] VITALS: BP 100/50
[2020-10-09 08:50] LABS: HEMATOCRIT 31.7 % (36.0-47.0); HEMOGLOBIN 10.9 g/dL (12.0-15.5); RED BLOOD COUNT 3.56 x10^6/uL (3.50-5.40); RED CELL DISTRIBUTION WIDTH 15.6 % (11.5-14.5); WHITE BLOOD COUNT 9.6 x10^3/uL (4.0-11.0)
--- NOTE | 2020-10-09 09:21 | PDOC ---
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 Mamta PO. Voiding. Minimal lochia. Objective: Vital Signs: Vital Signs Date Time Temp Pulse Resp B/P (MAP) Pulse Ox O2 Delivery O2 Flow Rate FiO2 10/08/20 07:21 99.2 104 18 125/78 (94) 98 Room Air 99.2 Vital Signs Date Time Temp Pulse Resp B/P (MAP) Pulse Ox O2 Delivery O2 Flow Rate FiO2 10/09/20 06:22 98.5 90 18 100/50 (67) 97 Room Air 98.5 Labs: Laboratory Tests Test 10/09/20 08:25 White Blood Count 9.6 x10^3/uL (4.0-11.0) Red Blood Count 3.56 x10^6/uL (3.50-5.40) Hemoglobin 10.9 g/dL (12.0-15.5) L Hematocrit 31.7 % (36.0-47.0) L Mean Corpuscular Volume 89 fL (79-100) Mean Corpuscular Hemoglobin 31 pg (25-35) Mean Corpuscular Hemoglobin Concent 34 g/dL (31-37) Red Cell Distribution Width 15.6 % (11.5-14.5) H Platelet Count 175 x10^3/uL (140-400) Laboratory Tests 10/09/20 08:25 Laboratory Tests 10/09/20 08:25 Physical Exam: GENERAL: No apparent distress. Alert and oriented. HEENT: Head normocephalic, atraumatic. NECK: Supple LUNGS: Clear to auscultation. HEART: RRR, S1, S2 present, pulses intact ABDOMEN: Soft, positive bowel sounds. EXTREMITIES: No cyanosis or edema. NEUROLOGIC: Normal speech, normal tone PSYCHIATRIC: Normal affect, normal mood. SKIN: No ulceration. FFNT below umb No C/C/E Inc: C/D/I Assessment & Plan: A/P 25y POD #1 s/p RLTCS 1.) PO doing well 2.) GDM will get fasting in the am, 2hr GTT at PP visit 3.) Hgb 13.2 -> 10.9 4.) TDAP given 08/20/20 5.) Flu 11/17/20 6.) Cont PO care ISRAEL NGUYEN MD Oct 09, 2020 09:21
[2020-10-09 09:55] VITALS: BP 110/63
[2020-10-09 14:40] VITALS: BP 107/64
[2020-10-09] MEDS: IBUPROFEN 400 MG TABLET. PO PRN (17:32)
[2020-10-09] MEDS: PRENATAL MULTIVITAMIN TABLET. PO SCH (17:33)
[2020-10-09] MEDS: MULTIVITAMIN with MINERAL TABLET. PO SCH (17:33)
[2020-10-09 18:30] VITALS: BP 119/78
[2020-10-09 23:21] VITALS: BP 111/70
[2020-10-10 06:05] VITALS: BP 113/78
[2020-10-10] MEDS: IBUPROFEN 400 MG TABLET. PO PRN (07:49)
[2020-10-10] MEDS: MULTIVITAMIN with MINERAL TABLET. PO SCH (08:41)
[2020-10-10] MEDS: PRENATAL MULTIVITAMIN TABLET. PO SCH (08:42)
[2020-10-10] MEDS ORDERED: OXYC1TAB15 PO (08:43)
[2020-10-10] MEDS ORDERED: IBUP-1060 PO (08:43)
[2020-10-10] MEDS ORDERED: DOCU-109 PO (08:43)
[2020-10-10 10:00] VITALS: BP 112/76
--- NOTE | 2020-10-10 12:25 | NUR ---
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 Pt verbalized understanding. Pt denies any questions. Pt discharged home with significant other and infant.
[2020-10-10 12:40] VITALS: BP 125/88
--- NOTE | 2020-10-10 13:19 | PDOC ---
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 Mamta PO. Voiding. Minimal lochia Objective: Vital Signs: Vital Signs Date Time Temp Pulse Resp B/P (MAP) Pulse Ox O2 Delivery O2 Flow Rate FiO2 10/09/20 09:55 98.2 83 20 110/63 (79) 98 Room Air 98.2 Vital Signs Date Time Temp Pulse Resp B/P (MAP) Pulse Ox O2 Delivery O2 Flow Rate FiO2 10/10/20 12:40 98.9 89 18 125/88 (100) 98 Room Air 98.9 Physical Exam: GENERAL: No apparent distress. Alert and oriented. HEENT: Head normocephalic, atraumatic. NECK: Supple LUNGS: Clear to auscultation. HEART: RRR, S1, S2 present, pulses intact ABDOMEN: Soft, positive bowel sounds. EXTREMITIES: No cyanosis or edema. NEUROLOGIC: Normal speech, normal tone PSYCHIATRIC: Normal affect, normal mood. SKIN: No ulceration. FFNT below umb No C/C/E Inc: C/D/I Assessment & Plan: A/P 25y POD #2 s/p RLTCS 1.) PO doing well 2.) GDM 2hr GTT at PP visit 3.) Hgb 13.2 -> 10.9 4.) TDAP given 08/20/20 5.) Flu 05/08/20 6.) D/c home ISRAEL NGUYEN MD Oct 10, 2020 13:19
--- NOTE | 2020-10-11 14:16 | DS ---
DATE OF DISCHARGE: 10/10/2020 ADMISSION DIAGNOSES: 1. Intrauterine at 39 weeks and 2 days by last menstrual period equal to a 22-week ultrasound. 2. Previous section x1, desires repeat. 3. Desires permanent sterilization. Consent signed on 09/20/2020, but not matured by the time of delivery. 4. Estimated weight of 84 percentile. 5. Gestational diabetes with a glucose tolerance test over 200. The patient did not regularly record fingerstick blood sugars. 6. Group B Streptococcus negative. DISCHARGE DIAGNOSES: 1. Intrauterine at 39 weeks and 2 days by last menstrual period equal to a 22-week ultrasound. 2. Previous section x1, desires repeat. 3. Desires permanent sterilization. Consent signed on 09/20/2020, but not matured by the time of delivery. 4. Estimated weight of 84 percentile. 5. Gestational diabetes with a glucose tolerance test over 200. The patient did not regularly record fingerstick blood sugars. 6. Group B Streptococcus negative. PROCEDURE: Repeat low transverse . BRIEF HOSPITAL COURSE: The patient is a 25-year-old 4, para 3-0-0-3, who presented to Labor and Delivery at 39 weeks and 2 days by LMP equal to a 22-week ultrasound for a scheduled . The patient had desired permanent sterilization. Consent was signed earlier in the , but due to errors in the consent form, it had to be redone. By the time it was re-signed, the consent had not matured. The patient ultimately decided that she still wanted a instead of a trial of labor, even knowing that a tubal could not be performed at the same time. The patient underwent the said procedure on 10/08/2020. See operative note for full details. By postoperative day #2, the patient was meeting all discharge criteria and was subsequently discharged home. Of note, the patient's hemoglobin on admission was 13.2, and after delivery, was found to be 10.9. DISCHARGE INSTRUCTIONS: The patient was told not to lift anything greater than 20 pounds, have pelvic rest for [address] on narcotics. CALL IF: The patient was to call if she had fevers, chills, nausea, vomiting, abdominal pain or any additional questions or concerns. FOLLOWUP APPOINTMENT: The patient was to follow up on 10/18/2020 at 1:00 p.m. for an incision check. DISCHARGE MEDICATIONS: The patient was given a prescription for Percocet 5 fifteen pills, Motrin 800 mg 30 pills, and Colace [address]: Deni TID: [id number] MTDD
== END 2020-10-10 12:45 | disposition home or self-care (01) | DRG 788 ==
LOC: 3 SO LND 05:59
PROVIDERS: ADMIT Obstetrics & Gynecology; ATTEND Obstetrics & Gynecology
PROC: 10D00Z1 Extraction of Products of Conception, Low, Open Approach (ICD-10-PCS; principal; 2020-10-08)
DX: O34.211 Maternal care for low transverse scar from previous cesarean delivery (principal); O24.429 Gestational diabetes mellitus in childbirth, unspecified control; K66.0 Peritoneal adhesions (postprocedural) (postinfection); O99.892 Other specified diseases and conditions complicating childbirth; Z37.0 Single live birth; Z3A.39 39 weeks gestation of pregnancy
CPT/HCPCS: 36415; 85027; 86592; 86850; 86900; 86901; C1755; J0690; J1885; J2274; J2370; J2590; J2765; J3010; J3490; J7120; G0378